=== PATIENT | female | born 1990 | race African-American/Black ===

== ENCOUNTER 2023-02-19 10:25 | Day surgery (SDC) | payer BC, OTHER ==
[2023-02-19 10:54] VITALS: BMI 34.0
[2023-02-19] MEDS ORDERED: hydrALAZINE 20 MG/ML VIAL SLOW IVP PRN (11:43)
[2023-02-19] MEDS ORDERED: Acetaminophen 325 MG TAB PO SCH (12:00)
[2023-02-19 12:39] LABS: Bilirubin Neg (Negative); Blood, Urine 50 (Negative); Clarity Clear (Clear); Glucose, Urine (Dipstick) Normal (Negative); Ketone, Urine Negative (Negative); Leukocyte Negative (Negative); Nitrite Negative (Negative); Protein, Urine (Dipstick) 15 mg/dl (Neg-Trace); Urobilinogen Normal mg/dL (Less than 2)
[2023-02-19 13:00] LABS: Bacteria/HPF None Seen HPF (None Seen); CAUTI Indications for Culture Pregnancy; RBC/HPF 0-3 HPF (0-3); WBC/HPF 0-3 HPF (0-3)
[2023-02-19 13:02] LABS: Urine Culture Reflex Yes Yes
== END 2023-02-19 13:56 | disposition home health service (06) ==
LOC: CSHLD/OP 10:25
PROVIDERS: ATTEND Obstetrics & Gynecology
DX: O26.893 Other specified pregnancy related conditions, third trimester (principal); R10.30 Lower abdominal pain, unspecified; O34.33 Maternal care for cervical incompetence, third trimester; O10.913 Unspecified pre-existing hypertension complicating pregnancy, third trimester; Z91.040 Latex allergy status; Z79.899 Other long term (current) drug therapy; Z79.82 Long term (current) use of aspirin; Z3A.28 28 weeks gestation of pregnancy
CPT/HCPCS: 81001; 87086; 87480; 87510; 87660; 99283

== ENCOUNTER 2023-04-19 04:44 | Day surgery (SDC) | payer BC, OTHER ==
[2023-04-19 05:36] VITALS: BMI 33.0
[2023-04-19] MEDS ORDERED: fentaNYL 50 mcg/mL 1 mL Vial ONE (05:55)
[2023-04-19] MEDS ORDERED: fentaNYL 50 mcg/mL 1 mL Vial SLOW IVP PRN (06:00)
[2023-04-19] MEDS ORDERED: hydrALAZINE 20 MG/ML VIAL SLOW IVP PRN (06:27)
[2023-04-19 06:46] LABS: Hemoglobin 8.6 g/dL (12.0-15.5); Mean Corpuscular HGB CONC 31.3 g/dL (32.0-36.0); Mean Corpuscular Hemoglobin 25.5 pg (27.0-33.0); Mean Corpuscular Volume 81.6 fl (81.6-98.3); Mean Platelet Volume 10.2 fl (7.4-10.4); Platelet Count 317 10x3/uL (150-450); RBC Distribution Width 15.4 % (11.5-14.5); Red Blood Cell (RBC) Count 3.37 10x6/uL (3.90-5.03); White Blood Cell (WBC) Count 8.3 10x3/uL (3.5-10.5)
[2023-04-19 07:19] LABS: Syphilis Antibody Nonreactive (Nonreactive); Syphilis Antibody Index 0.06 S/CO (<1.00 Non-Reactive)
[2023-04-19 07:20] LABS: HIV (1/2) Antibody/Antigen Non-Reactive (NonReactive); HIV 1/2 INDEX 0.12 S/CO (<1.00)
[2023-04-19 08:01] LABS: HBSAg Index 0.13 S/CO (0-0.99); Hep B Surf Ag - L&D Non-Reactive S/CO (NonReactive)
== END 2023-04-19 08:21 | disposition home or self-care (01) ==
LOC: CSHLD/OP 04:44
PROVIDERS: ATTEND Obstetrics & Gynecology
DX: O47.1 False labor at or after 37 completed weeks of gestation (principal); O10.913 Unspecified pre-existing hypertension complicating pregnancy, third trimester; O34.33 Maternal care for cervical incompetence, third trimester; O26.873 Cervical shortening, third trimester; O26.43 Herpes gestationis, third trimester; O09.891 Supervision of other high risk pregnancies, first trimester; B06.9 Rubella without complication; O99.343 Other mental disorders complicating pregnancy, third trimester; F41.9 Anxiety disorder, unspecified; Z91.040 Latex allergy status; Z79.899 Other long term (current) drug therapy; Z3A.37 37 weeks gestation of pregnancy
CPT/HCPCS: 36415; 85027; 86780; 86850; 86900; 86901; 87340; 87389; 96374; 99284; J3010

== ENCOUNTER 2024-09-01 22:57 | Emergency (ER) | payer BC ==
[2024-09-02] MEDS ORDERED: diphenhydrAMINE 25 MG CAP ONE (00:08)
[2024-09-02] MEDS ORDERED: Metoclopramide 10 MG/10 ML UDCUP ONE (00:08)
== END 2024-09-02 00:21 | disposition home or self-care (01) ==
LOC: CSHERS 22:57
DX: R51.9 Headache, unspecified (principal); I10 Essential (primary) hypertension; Z79.899 Other long term (current) drug therapy
CPT/HCPCS: 93005; 99284